=== PATIENT | female | born 1970 | race American Indian/Alaskan Native ===

== ENCOUNTER 2019-06-22 17:51 | Emergency (ER) | payer BC ==
[2019-06-22] MEDS ORDERED: GABAPENTIN 300 MG CAP PO ONE (18:24)
--- NOTE | 2019-06-22 18:29 | Emergency Department Report ---
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 Symptoms started 7 days ago. 6 days ago patient went to [facility] because she had the symptoms in both her left upper and lower leg. She had unremarkable stroke exam and therefore received a cardiac work-up as opposed to a stroke work-up. She reports she had a chest x-ray, EKG, and blood work that were unremarkable. Patient was discharged from the ER. She was informed to come to the ED if symptoms worsen. Patient no longer is having left leg symptoms but has persistent intermittent left arm symptoms from the base of the neck down to the hand. Symptoms are intermittent and described as a cold and tight feeling with tingling. Patient complains some tightness to the left side of her neck. She denies recent injury, posterior neck pain, chest pain, or other neurologic symptoms. Patient did have an intense feeling of tingling and tightness in the left arm with associated lightheadedness and shortness of prior to arrival. Patient denies smoking history. She is right-hand dominant. - Related Data Home Medications: Previous Rx's Medication Instructions Recorded Last Taken Type Gabapentin 300 mg PO Q8HR #90 capsule 06/22/19 Unknown Rx Allergies/Adverse Reactions: Allergies Allergy/AdvReac Type Severity Reaction Status Date / Time ampicillin Allergy Unknown Verified 06/22/19 18:13 cefuroxime [From Ceftin] Allergy Unknown Verified 06/22/19 18:13 ciprofloxacin Allergy Unknown Verified 06/22/19 18:13 nitrofurantoin Allergy Unknown Verified 06/22/19 18:13 [From Macrobid] Penicillins Allergy Unknown Verified 06/22/19 18:13 Sulfa (Sulfonamide Allergy Unknown Verified 06/22/19 18:13 Antibiotics) ED Review of Systems ROS: Stated complaint: LEFT ARM WEAKNESS Other details as noted in HPI Comment: All other systems reviewed and negative ED Past Medical Hx - Past Medical History Previous Medical History?: Yes Hx Arthritis: Yes Additional medical history: sleep apnea - Surgical History Past Surgical History?: Yes Additional Surgical History: right Salpingectomy - Social History Smoking Status: Never Smoker Substance Use Type: None - Medications Home Medications: Home Medications Medication Instructions Recorded Confirmed Last Taken Type Gabapentin 300 mg PO Q8HR #90 capsule 06/22/19 Unknown Rx ED Neuro Physical Exam - General Limitations: No Limitations Suspected Stroke: No - NIHSS Assessment Interval: Baseline 1a. Level of Consciousness: alert/keenly responsive 1b. LOC Questions: answers both correctly 1c. LOC Commands: performs tasks correctly 2. Best Gaze: normal 3. Visual: no visual loss 4. Facial Palsy: normal symmetrical movement 5b. Motor Arm Right: no drift 5a. Motor Arm Left: no drift 6a. Motor Leg Left: no drift 6b. Motor Leg Right: no drift 7. Limb Ataxia: absent 8. Sensory: normal 9. Best Language: no aphasia 10. Dysarthria: normal 11. Extinction/Inattention: no abnormality Total Score: 0 Stroke Severity: No Stroke Symptoms - Other Other exam information: General: No acute distress Head: Atraumatic Eyes: normal appearance ENT: Moist mucous membranes Neck: Normal appearance, no midline tenderness Chest: Clear to auscultation bilaterally CV: Regular rate and rhythm Abdomen: Soft, normal bowel sounds, nontender, nondistended, no rebound or gu arding Back: Normal inspection Extremity: Normal inspection, full range of motion, 2+ radial pulse Neuro: Alert O x 3, no facial asymmetry, speech clear, no gross motor sensory deficit. Sensation intact but patient still describes a cold numb feeling to the left arm from the base of the neck down to the fingers Psych: Appropriate behavior Skin: No rash ED Course - Reevaluation(s) Reevaluation #1: 06/22/19 21:05 sx improved after neurontin and toradol - Lab Data Result diagrams: 06/22/19 18:20 06/22/19 18:20 Lab Results 06/22/19 06/22/19 06/22/19 Range/Units 18:20 18:20 18:27 WBC 13.3 H (4.5-11.0) K/mm3 RBC 4.69 (3.65-5.03) M/mm3 Hgb 11.0 (10.1-14.3) gm/dl Hct 34.4 (30.3-42.9) % MCV 73 L (79-97) fl MCH 24 L (28-32) pg MCHC 32 (30-34) % RDW 15.3 H (13.2-15.2) % Plt Count 379 (140-440) K/mm3 Lymph % (Auto) 24.6 (13.4-35.0) % Randolph % (Auto) 7.0 (0.0-7.3) % Eos % (Auto) 1.2 (0.0-4.3) % Baso % (Auto) 0.6 (0.0-1.8) % Lymph # 3.3 (1.2-5.4) K/mm3 Randolph # 0.9 H (0.0-0.8) K/mm3 Eos # 0.2 (0.0-0.4) K/mm3 Baso # 0.1 (0.0-0.1) K/mm3 Seg Neutrophils % 66.6 (40.0-70.0) % Seg Neutrophils # 8.9 H (1.8-7.7) K/mm3 Sodium 136 L (137-145) mmol/L Potassium 4.1 (3.6-5.0) mmol/L Chloride 97.9 L (98-107) mmol/L Carbon Dioxide 24 (22-30) mmol/L Anion Gap 18 mmol/L BUN 9 (7-17) mg/dL Creatinine 0.7 (0.7-1.2) mg/dL Estimated GFR > 60 ml/min BUN/Creatinine Ratio 13 % Glucose 107 H (65-100) mg/dL Calcium 9.9 (8.4-10.2) mg/dL Magnesium 2.00 (1.7-2.3) mg/dL Total Creatine Kinase 145 H (30-135) units/L CK-MB (CK-2) 1.0 (0.0-4.0) ng/mL CK-MB (CK-2) Rel Index 0.6 (0-4) Troponin T < 0.010 (0.00-0.029) ng/mL - EKG Data -: EKG Interpreted by [facility] EKG shows normal: sinus rhythm, ST-T waves (no stemi) Rate: normal (86) - Radiology Data Radiology results: report reviewed Exam: CT cervical spine History: MAIN: left arm paresthesia x 1 week. Pt states left arm tingle/numbness for a week.; Technique: Contiguous thin cut axial images obtained through the cervical spine. Sagittal and coronal reconstructions performed by the technologist. All CT scans at this location are performed using CT dose reduction for ALARA by means of automated exposure control. Findings: No priors. There is no evidence of fracture or traumatic subluxation. Vertebral bodies are normal in height and alignment. Intervertebral disc spaces: Small midline bulging disc is seen at C3-C4 disc level. Neuroforamina are normal. Bulging disc is seen at C5-C6 and C6-C7 disc levels. Beam hardening artifacts obscuring the details. No significant degenerative change seen in the uncinate or facet joints. No significant canal stenosis or osseous foraminal narrowing. Surrounding soft tissues are grossly normal. Impression: Normal neuroforamina Bulging discs at C3-C4, C5-C6 and C6-C7 disc levels. NONENHANCED CT SCAN OF THE HEAD: INDICATION / CLINICAL INFORMATION: 49 years Female; MAIN: left arm paresthesia x 1 week. Pt states left arm tingle/numbness for a week. . TECHNIQUE: Routine CT head without contrast. All CT scans at this location are performed using CT dose reduction for ALARA by means of automated exposure control. COMPARISON: None. FINDINGS: BRAIN / INTRACRANIAL CONTENTS: No acute hemorrhage, mass effect, midline shift, hydrocephalus, or acute, large territorial infarct. No chronic infarct or focal atrophy. Normal brain volume and ventricular/sulcal size for age. No significant white matter abnormality. CRANIOCERVICAL JUNCTION: No significant abnormality. ORBITS: No significant abnormality of visualized orbits. SINUSES / MASTOIDS: No significant abnormality of the visualized paranasal sinuses or mastoid air cells. ADDITIONAL FINDINGS: None. IMPRESSION: No focal parenchymal lesion in the brain - Medical Decision Making Patient is not have any focal neurologic findings on exam but does complain of a cold and tight and intermittent tightness feeling to left upper extremity. Symptoms ongoing x1 week. CT head unremarkable and CT cervical spine positive for multiple mild bulging disc. P patient patient denies chest pain but he had an episode of lightheadedness associated with left arm tightness and has a normal EKG with negative troponin. ED cardiac work-up at [place] last week which was also unremarkable. Patient describes neuropathic type pain and was treated with Neurontin and Toradol here with improvement in pain. She will be discharged on Neurontin and told to continue diclofenac. She will be provided a copy of her imaging and lab results and encouraged to follow-up for further w ork-up and evaluation of possible radicular pain including possible outpatient MRI. Patient has appointment her PMD tomorrow - Differential Diagnosis Paresthesias, herniated disc, CVA, unstable angina, MA, electrolyte abdomen Critical Care Time: No Critical care attestation.: If time is entered above; I have spent that time in minutes in the direct care of this critically ill patient, excluding procedure time. ED Disposition Clinical Impression: Radiculopathy, cervical, Arm paresthesia, left, Cervical herniated disc Disposition: DC- TO HOME OR SELFCARE Is pt being admited?: No Does the pt Need Aspirin: No Condition: Stable Instructions: Cervical Radiculopathy (ED), Cervical Disc Herniation (ED) Additional Instructions: Take the medication as prescribed. Continue your diclofenac. Follow-up with your doctor or doctor/clinic provided. Return if symptoms worsen as indicated by your discharge instructions. Prescriptions: Gabapentin 300 mg PO Q8HR #90 capsule Referrals: STEVEN ERNST MD [Primary Care Provider] - 06/23/19 (As scheduled) Time of Disposition: 21:06
[2019-06-22 18:47] LABS: Basophils # (Auto) 0.1 K/mm3 (0.0-0.1); Basophils % (Auto) 0.6 % (0.0-1.8); Eosinophils # (Auto) 0.2 K/mm3 (0.0-0.4); Eosinophils % (Auto) 1.2 % (0.0-4.3); Hematocrit 34.4 % (30.3-42.9); Lymphocytes # (Auto) 3.3 K/mm3 (1.2-5.4); Lymphocytes % (Auto) 24.6 % (13.4-35.0); Mean Corpuscular HGB Conc 32 % (30-34); Mean Corpuscular Volume 73 fl (79-97); Monocytes # (Auto) 0.9 K/mm3 (0.0-0.8); Platelet Count 379 K/mm3 (140-440); Red Blood Count 4.69 M/mm3 (3.65-5.03); Red Cell Distribution Width 15.3 % (13.2-15.2)
[2019-06-22 19:01] LABS: BUN/Creatinine Ratio 13; Blood Urea Nitrogen 9 mg/dL (7-17); Calcium 9.9 mg/dL (8.4-10.2); Hemolysis Index 1
[2019-06-22] MEDS ORDERED: KETOROLAC 60 MG/2 ML INJ IM ONE (19:48)
--- NOTE | 2019-06-22 20:12 | Cat Scan Report ---
NONENHANCED CT SCAN OF THE HEAD: INDICATION / CLINICAL INFORMATION: 49 years Female; MAIN: left arm paresthesia x 1 week. Pt states left arm tingle/numbness for a week. . TECHNIQUE: Routine CT head without contrast. All CT scans at this location are performed using CT dos e reduction for ALARA by means of automated exposure control. COMPARISON: None. FINDINGS: BRAIN / INTRACRANIAL CONTENTS: No acute hemorrhage, mass effect, midline shift, hydrocephalus, or acu te, large territorial infarct. No chronic infarct or focal atrophy. Normal brain volume and ventricul ar/sulcal size for age. No significant white matter abnormality. CRANIOCERVICAL JUNCTION: No significant abnormality. ORBITS: No significant abnormality of visualized orbits. SINUSES / MASTOIDS: No significant abnormality of the visualized paranasal sinuses or mastoid air mary alice ls. ADDITIONAL FINDINGS: None. IMPRESSION: No focal parenchymal lesion in the brain Signer Name: Joey Chowdhury MD Signed: 06/22/2019 8:07 PM Workstation Name: [id number]
--- NOTE | 2019-06-22 20:19 | Cat Scan Report ---
Exam: CT cervical spine History: MAIN: left arm paresthesia x 1 week. Pt states left arm tingle/numbness for a week.; Technique: Contiguous thin cut axial images obtained through the cervical spine. Sagittal and valerio l reconstructions performed by the technologist. All CT scans at this location are performed using CT dose reduction for ALARA by means of automated exposure control. Findings: No priors. There is no evidence of fracture or traumatic subluxation. Vertebral bodies are normal in height and alignment. Intervertebral disc spaces: Small midline bulging disc is seen at C3-C4 disc level. Neuroforamina are normal. Bulging disc is seen at C5-C6 and C6-C7 disc levels. Beam hardening artifacts obscuring the details. No significant degenerative change seen in the uncinate or facet joints. No significant canal stenosi s or osseous foraminal narrowing. Surrounding soft tissues are grossly normal. Impression: Normal neuroforamina Bulging discs at C3-C4, C5-C6 and C6-C7 disc levels. Signer Name: Joey Chowdhury MD Signed: 06/22/2019 8:15 PM Workstation Name: [id number]
[2019-06-22 21:11] VITALS: BP 139/77
== END 2019-06-22 21:33 | disposition home or self-care (01) ==
LOC: ED 17:51
DX: M50.10 Cervical disc disorder with radiculopathy, unspecified cervical region (principal); R20.2 Paresthesia of skin; M19.90 Unspecified osteoarthritis, unspecified site; Z88.0 Allergy status to penicillin; Z88.8 Allergy status to other drugs, medicaments and biological substances; Z79.899 Other long term (current) drug therapy; Z98.890 Other specified postprocedural states
CPT/HCPCS: 36415; 70450; 72125; 80048; 82550; 82553; 83735; 84484; 85025; 93005; 96372; 99284; J1885